=== PATIENT | male | born 1985 | race Caucasian/White ===

== ENCOUNTER 2020-12-04 06:49 | Emergency (ER) | payer OTHER ==
[~2020-12-04] VITALS: Ht 170.2 cm; Wt 127.0 kg
[2020-12-04 06:49] VITALS: BP_SYST 160
--- NOTE | 2020-12-04 06:49 | NUR ---
ER in tent examining patient.
--- NOTE | 2020-12-04 07:00 | NUR ---
Pt walked in to ER with c/o right finger pain, reports falling 2 days ago and noticed swelling and pain 3/10, not improving. V/S stable, no distress noted.
[2020-12-04] MEDS ORDERED: METF1000 PO (07:10)
--- NOTE | 2020-12-04 07:30 | NUR ---
Ulnar Guter splint applied to Right fingers/hand. Positive pulse noted. Capillary refill <3 seconds. Patient has ability to move non-splinted digits. Has sensation present to affected site. Skin color within normal limits. Applied for pain management control. Pt tolerated well.
--- NOTE | 2020-12-04 07:50 | NUR ---
Patient given written and verbal discharge instructions and verbalizes understanding. ER MD discussed with patient the results and treatment provided. Patient in stable condition. ID arm band removed. Rx of Naprosyn given. Patient educated on pain management and to follow up with PMD. Pain Scale 3. Opportunity for questions provided and answered. Medication side effect fact sheet provided.
[2020-12-04 08:03] VITALS: BP_SYST 145
== END 2020-12-04 08:03 | disposition home or self-care (01) ==
LOC: SED 06:49
DX: S62.326A Displaced fracture of shaft of fifth metacarpal bone, right hand, initial encounter for closed fracture (principal); I10 Essential (primary) hypertension; E11.9 Type 2 diabetes mellitus without complications; W18.09XA Striking against other object with subsequent fall, initial encounter; Y93.89 Activity, other specified; Y92.89 Other specified places as the place of occurrence of the external cause; Y99.8 Other external cause status
CPT/HCPCS: 99283